=== PATIENT | female | born 1980 | race Caucasian/White ===

== ENCOUNTER 2020-05-20 10:51 | Emergency (ER) | payer OTHER ==
[~2020-05-20] VITALS: Ht 167.6 cm; Wt 81.7 kg
[~2020-05-20 10:51] MED LIST: CLONAZEPAM 0.50.5 M1 PO; IBUPROFEN 400400 M2 PO; IBUPROFEN 600600 M1 PO; IRON325; LASIX 20 MG TAB20 MG PO; NORCO 5-325 TA1 EACH PO; PRENATAL; PRO AIR INHALER; TUCKS1 EAC1; XANAX 0.5 MG0.5 M1 PO
[2020-05-20 11:14] LABS: URINE BILIRUBIN NEGATIVE (Negative); URINE BLOOD TRACE (Negative); URINE CLARITY CLEAR; URINE COLOR YELLOW; URINE GLUCOSE-RANDOM* NEGATIVE (Negative); URINE KETONES NEGATIVE (Negative); URINE LEUKOCYTES-REFLEX TRACE (Negative); URINE NITRITE-REFLEX NEGATIVE (Negative); URINE PROTEIN (DIPSTICK) NEGATIVE (Negative); URINE SPECIFIC GRAVITY 1.025 (1.005-1.035); URINE UROBILINOGEN 0.2 E.U./dl (0.2-1.0)
[2020-05-20 12:06] LABS: BASOPHILS 0.8 % (0.0-2.0); EOSINOPHILS 2.3 % (0.0-3.0); HEMOGLOBIN 10.5 gm/dL (12.0-15.0); LYMPHOCYTES 22.4 % (24.0-44.0); MCHC 32.9 g/dL (28.0-37.0); MCV 73.1 fL (80.0-100.0); MONOCYTES 5.5 % (1.0-8.0); PLATELET COUNT 280 thou/uL (150-400); RBC 4.39 mil/uL (4.20-5.00); RDW 15.8 % (10.5-14.5); WBC 4.4 thou/uL (4.0-11.0)
[2020-05-20 12:11] LABS: ANION GAP 9 mmol/L (7-16); BUN 10 mg/dL (7-18); CALCIUM 9.2 mg/dL (8.5-10.1); CHLORIDE 101 mmol/L (98-107); CO2 26 mmol/L (21-32); CREATININE 0.7 mg/dL (0.6-1.0); GLUCOSE 114 mg/dL (74-106); SODIUM 136 mmol/L (136-145)
[2020-05-20 12:20] LABS: ALBUMIN 3.5 g/dL (3.4-5.0); DIRECT BILIRUBIN < 0.1 mg/dL (<0.1-0.2); LIPASE 97 U/L (73-393); SGOT 15 U/L (15-37); SGPT 17 U/L (30-65); TOTAL BILIRUBIN 0.2 mg/dL (0.2-1.0); TOTAL PROTEIN 7.5 g/dL (6.4-8.2)
[2020-05-20 14:20] VITALS: BP 112/82
== END 2020-05-20 14:21 | disposition home or self-care (01) ==
LOC: ER 10:51
PROVIDERS: Nurse Practitioner
DX: O99.351 Diseases of the nervous system complicating pregnancy, first trimester (principal); R42 Dizziness and giddiness; O99.511 Diseases of the respiratory system complicating pregnancy, first trimester; J45.909 Unspecified asthma, uncomplicated; Z88.1 Allergy status to other antibiotic agents; Z88.2 Allergy status to sulfonamides; Z88.8 Allergy status to other drugs, medicaments and biological substances; Z3A.01 Less than 8 weeks gestation of pregnancy